=== PATIENT | female | born 1965 | race Caucasian/White ===

== ENCOUNTER 2020-08-10 10:17 | Emergency (ER) | payer OTHER ==
[~2020-08-10 10:17] MED LIST: NYSTOP TOPICAL30 GM TOP; PERIDEX15 ML PO; ZESTRIL5 MG PO
== END 2020-08-10 12:26 | disposition home or self-care (01) ==
LOC: FER 10:17
DX: S00.83XA Contusion of other part of head, initial encounter (principal); Z88.0 Allergy status to penicillin; W22.8XXA Striking against or struck by other objects, initial encounter; Y92.89 Other specified places as the place of occurrence of the external cause; Y99.0 Civilian activity done for income or pay
CPT/HCPCS: 70486; 72125

== ENCOUNTER 2021-02-26 18:18 | Emergency (ER) | payer OTHER ==
[2021-02-26 19:16] LABS: ALBUMIN 3.6 g/dL (3.4-5.0); BILIRUBIN - TOTAL 0.4 mg/dL (0.2-1.0); BUN/CREAT RATIO (CALC) 26.5 RATIO; CREATININE 0.49 mg/dL (0.51-0.95); GLOBULIN (CALCULATION) 3.1 g/dL; POTASSIUM 3.1 mmol/L (3.5-5.1); TOTAL PROTEIN 6.7 g/dL (6.4-8.2)
[2021-02-26 19:20] LABS: BASOPHIL 0.5 % (0-2); EOSINOPHIL 1.5 % (0-5); HCT 37.4 % (37.0-47.0); HGB 12.2 g/dl (12.5-16.0); LYMPHOCYTE 24.6 % (15-48); MCHC 32.6 g/dL (32.0-36.0); MCV 92.1 fL (78.0-100.0); MONOCYTE 5.7 % (0-12); MPV 11.1 fL (6.0-9.5); NEUTROPHIL 67.4 % (41-80); NRBC 0; PLT 166 K/uL (150-400); RBC 4.06 M/uL (4.20-5.40); RDW 13.2 % (11.5-14.0); WBC 5.8 K/uL (4.0-10.5)
[2021-02-26 19:26] LABS: CKMB 1.5 ng/mL (0.0-3.6)
[2021-02-26 19:28] LABS: INR 1.07 (0.9-1.2); PROTHROMBIN TIME 13.3 SECONDS (11.8-13.4); PTT 28.7 SECONDS (24.4-34.7)
== END 2021-02-26 20:20 | disposition home or self-care (01) ==
LOC: FER 18:18
PROVIDERS: Emergency Medicine
DX: R07.89 Other chest pain (principal); E87.6 Hypokalemia; D64.9 Anemia, unspecified; I10 Essential (primary) hypertension; Z88.0 Allergy status to penicillin; Z87.891 Personal history of nicotine dependence
CPT/HCPCS: 36415; 71045; 80053; 82553; 84484; 85025; 85610; 85730; 93005